=== PATIENT | female | born 1990 | race Caucasian/White ===

== ENCOUNTER → 2016-07-15 | Outpatient (CLI) | payer BC ==
[~2016-07-15] VITALS: Ht 167.6 cm; Wt 65.9 kg
[~2016-07-15] MED LIST: ZOLOFT 25MG25 MG PO
[2016-07-15 12:20] VITALS: BP 122/70; PULSE 65
[2016-07-15 13:30] VITALS: BP 124/78; PULSE 68
== END ==
LOC: COL.RAD 11:55
DX: C73 Malignant neoplasm of thyroid gland (principal)
CPT/HCPCS: 13756; 25581